=== PATIENT | female | born 1930 | race Caucasian/White ===

== ENCOUNTER 2017-09-30 10:39 | Inpatient (IN) | payer OTHER ==
[2017-09-30] MEDS ORDERED: ONDANSETRON 4 MG INJ IV (14:00)
[2017-09-30] MEDS ORDERED: VANCOMYCIN IV PER PHARMACY XX (14:00)
[2017-09-30 15:56] LABS: BLOOD UREA NITROGEN 19 mg/dl (7-20)
[2017-09-30 15:56] LABS: CREATININE 0.86 mg/dl (0.44-1.00)
[2017-09-30 15:57] LABS: ALANINE AMINOTRANSFERASE 28 IU/L (13-69); ALBUMIN 3.7 g/dl (3.3-4.9); ALKALINE PHOSPHATASE 86 IU/L (42-121); ASPARTATE AMINO TRANSFERASE 25 IU/L (15-46); BILIRUBIN,INDIRECT 0.1 mg/dl (0-1.1); BILIRUBIN,TOTAL 0.1 mg/dl (0.2-1.3); CHOLESTEROL 187 mg/dl (100-200); HDL CHOLESTEROL 46 mg/dl (33-92); LDL CHOLESTEROL,CALCULATED 115 mg/dl; MAGNESIUM 1.8 mg/dl (1.7-2.5); PHOSPHORUS 3.5 mg/dl (2.5-4.9); TOTAL PROTEIN 7.1 g/dl (6.1-8.1); TRIGLYCERIDES 130 mg/dl (0-149)
[2017-09-30 15:59] LABS: HEMOGLOBIN A1C 5.6 % (0-5.9)
[2017-09-30] MEDS: VANCOMYCIN 1 GM 250 ML IVPB (16:09)
[2017-09-30 17:02] LABS: ERYTHROCYTE SEDIMENTATION RATE 45 mm/Hr (0-30)
[2017-09-30 17:24] LABS: INR 1.21; PROTIME 15.5 Sec (11.9-14.9); PT RATIO 1.2
[2017-09-30 17:25] LABS: PARTIAL THROMBOPLASTIN TIME 34.6 Sec (25.0-35.0)
[2017-09-30 17:58] LABS: ADD UMIC YES; UR ASCORBIC ACID NEGATIVE (NEGATIVE); UR BACTERIA MODERATE /HPF (NONE SEEN); UR BILIRUBIN (Dip) NEGATIVE (NEGATIVE); UR BLOOD (Dip) 2+ mg/dL (NEGATIVE); UR CLARITY SLIGHTLY CLOUDY (CLEAR); UR COLOR YELLOW (YELLOW); UR GLUCOSE (Dip) NEGATIVE (NEGATIVE); UR KETONES (Dip) NEGATIVE (NEGATIVE); UR LEUKOCYTE ESTERASE (Dip) 3+ Leu/ul (NEGATIVE); UR NITRITE (Dip) POSITIVE (NEGATIVE); UR RBC 15 /HPF (0-5); UR SPECIFIC GRAVITY (Dip) 1.011 (1.003-1.030); UR TOTAL PROTEIN (Dip) NEGATIVE (NEGATIVE); UR UROBILINOGEN (Dip) NEGATIVE (NEGATIVE); UR WBC 107 /HPF (0-5)
[2017-09-30 18:02] LABS: D-DIMER 9221.22 ng/ml (<460)
[2017-09-30] MEDS: ATORVASTATIN 10 MG TAB PO (20:37)
[2017-09-30] MEDS: DOCUSATE SODIUM 100 MG CAP PO (20:37)
[2017-09-30] MEDS: FAMOTIDINE 20 MG TAB PO (20:37)
[2017-09-30] MEDS: APIXABAN 5 MG TABLET PO (20:38)
[2017-10-01] MEDS: hydrALAzine 20 MG INJ IV (02:34)
[2017-10-01] MEDS ORDERED: METOPROLOL 25 MG TAB PO ×2 (09:00→21:00)
[2017-10-01] MEDS: DOCUSATE SODIUM 100 MG CAP PO ×2 (09:49→21:35)
[2017-10-01] MEDS: FAMOTIDINE 20 MG TAB PO (09:49)
[2017-10-01] MEDS: APIXABAN 5 MG TABLET PO ×2 (10:03→21:35)
[2017-10-01] MEDS: METOPROLOL 25 MG TAB PO ×2 (10:05→21:39)
[2017-10-01] MEDS: CEFEPIME 1GM/50 ML (PMX) 50 ML IVPB ×2 (10:05→21:35)
[2017-10-01 12:01] LABS: ADD MAN DIFF? NO
[2017-10-01 12:19] LABS: BASOPHIL # 0.1 10^3/ul (0.0-0.1); BASOPHILS % 0.7 % (0.0-2.0); EOSINOPHILS # 0.1 10^3/ul (0.0-0.5); EOSINOPHILS % 0.6 % (0.0-7.0); HEMATOCRIT 39.3 % (37.0-47.0); HEMOGLOBIN 13.1 g/dl (12.0-16.0); LYMPHOCYTES # 1.6 10^3/ul (0.8-2.9); MEAN CORPUSCULAR HEMOGLOBIN 28.9 pg (29.0-33.0); MEAN CORPUSCULAR HGB CONC 33.3 g/dl (32.0-37.0); MEAN CORPUSCULAR VOLUME 86.6 fl (82.0-101.0); MEAN PLATELET VOLUME 9.5 fl (7.4-10.4); MONOCYTE # 1.5 10^3/ul (0.3-0.9); MONOCYTES % 11.4 % (0.0-11.0); NEUTROPHIL # 9.7 10^3/ul (1.6-7.5); NEUTROPHILS % 74.6 % (39.0-77.0); PLATELET COUNT 362 10^3/UL (140-415); RED BLOOD COUNT 4.54 10^6/ul (4.20-5.40)
[2017-10-01 12:39] LABS: ANION GAP 16 (8-16); BLOOD UREA NITROGEN 17 mg/dl (7-20); CALCIUM 9.3 mg/dl (8.4-10.2); CARBON DIOXIDE 26 mmol/L (21-31); CHLORIDE 97 mmol/L (97-110); CREATININE 0.67 mg/dl (0.44-1.00); GLUCOSE 118 mg/dl (70-220); POTASSIUM 3.9 mmol/L (3.5-5.1); SODIUM 135 mmol/L (135-144)
[2017-10-01 12:41] LABS: URIC ACID 3.7 mg/dl (3.1-7.9)
[2017-10-01] MEDS: VANCOMYCIN 1 GM 250 ML IVPB (15:50)
[2017-10-01] MEDS ORDERED: WARFARIN 2.5 MG TAB PO (17:00)
[2017-10-01] MEDS: ATORVASTATIN 10 MG TAB PO (21:35)
[2017-10-02] MEDS: CEFEPIME 1GM/50 ML (PMX) 50 ML IVPB ×2 (08:33→20:28)
[2017-10-02] MEDS: APIXABAN 5 MG TABLET PO ×2 (08:34→20:28)
[2017-10-02] MEDS: DOCUSATE SODIUM 100 MG CAP PO ×2 (08:34→20:28)
[2017-10-02] MEDS: FAMOTIDINE 20 MG TAB PO (08:35)
[2017-10-02] MEDS: METOPROLOL 25 MG TAB PO ×2 (08:35→20:33)
[2017-10-02 10:23] LABS: ADD MAN DIFF? NO
[2017-10-02 10:25] LABS: BASOPHIL # 0.1 10^3/ul (0.0-0.1); BASOPHILS % 0.8 % (0.0-2.0); EOSINOPHILS # 0.2 10^3/ul (0.0-0.5); HEMOGLOBIN 12.6 g/dl (12.0-16.0); LYMPHOCYTES # 1.8 10^3/ul (0.8-2.9); LYMPHOCYTES % 17.4 % (15.0-51.0); MEAN CORPUSCULAR HEMOGLOBIN 29.2 pg (29.0-33.0); MEAN CORPUSCULAR HGB CONC 33.2 g/dl (32.0-37.0); MEAN PLATELET VOLUME 9.4 fl (7.4-10.4); MONOCYTES % 9.7 % (0.0-11.0); NEUTROPHILS % 69.5 % (39.0-77.0); PLATELET COUNT 351 10^3/UL (140-415); RED BLOOD COUNT 4.32 10^6/ul (4.20-5.40)
[2017-10-02 10:25] LABS: WHITE BLOOD COUNT 10.1 10^3/ul (4.8-10.8)
[2017-10-02 10:47] LABS: ANION GAP 15 (8-16); BLOOD UREA NITROGEN 19 mg/dl (7-20); CALCIUM 8.9 mg/dl (8.4-10.2); CARBON DIOXIDE 25 mmol/L (21-31); CHLORIDE 100 mmol/L (97-110); GLUCOSE 132 mg/dl (70-220); MAGNESIUM 1.8 mg/dl (1.7-2.5); PHOSPHORUS 2.6 mg/dl (2.5-4.9); POTASSIUM 3.6 mmol/L (3.5-5.1); SODIUM 136 mmol/L (135-144)
[2017-10-02 16:12] LABS: VANCOMYCIN,TROUGH 5.5 ug/ml (10.0-20.0)
[2017-10-02] MEDS: VANCOMYCIN 1 GM 250 ML IVPB (16:16)
[2017-10-02] MEDS: ATORVASTATIN 10 MG TAB PO (20:28)
[2017-10-02] MEDS: traMADol-APAP 37.5-325 1 TAB PO (21:10)
[2017-10-03] MEDS: VANCOMYCIN 1 GM 250 ML IVPB (05:33)
[2017-10-03 05:57] LABS: ADD MAN DIFF? NO; BASOPHIL # 0.1 10^3/ul (0.0-0.1); BASOPHILS % 0.9 % (0.0-2.0); EOSINOPHILS # 0.3 10^3/ul (0.0-0.5); EOSINOPHILS % 3.3 % (0.0-7.0); HEMATOCRIT 35.6 % (37.0-47.0); LYMPHOCYTES # 2.4 10^3/ul (0.8-2.9); LYMPHOCYTES % 27.6 % (15.0-51.0); MEAN CORPUSCULAR HEMOGLOBIN 29.1 pg (29.0-33.0); MEAN CORPUSCULAR HGB CONC 33.7 g/dl (32.0-37.0); MEAN CORPUSCULAR VOLUME 86.2 fl (82.0-101.0); MEAN PLATELET VOLUME 9.4 fl (7.4-10.4); MONOCYTES % 11.8 % (0.0-11.0); NEUTROPHIL # 4.9 10^3/ul (1.6-7.5); NEUTROPHILS % 55.8 % (39.0-77.0); PLATELET COUNT 363 10^3/UL (140-415); RED BLOOD COUNT 4.13 10^6/ul (4.20-5.40); RED CELL DISTRIBUTION WIDTH 13.2 % (11.5-14.5)
[2017-10-03 05:57] LABS: WHITE BLOOD COUNT 8.8 10^3/ul (4.8-10.8)
[2017-10-03 06:53] LABS: BLOOD UREA NITROGEN 19 mg/dl (7-20); CALCIUM 8.7 mg/dl (8.4-10.2); CARBON DIOXIDE 27 mmol/L (21-31); CREATININE 0.73 mg/dl (0.44-1.00); GLUCOSE 90 mg/dl (70-220); PHOSPHORUS 3.1 mg/dl (2.5-4.9); POTASSIUM 3.8 mmol/L (3.5-5.1); SODIUM 138 mmol/L (135-144)
[2017-10-03 07:15] LABS: ANION GAP 12 (8-16)
[2017-10-03 07:16] LABS: CHLORIDE 103 mmol/L (97-110)
[2017-10-03] MEDS: FAMOTIDINE 20 MG TAB PO (08:51)
[2017-10-03] MEDS: DOCUSATE SODIUM 100 MG CAP PO ×2 (08:51→20:19)
[2017-10-03] MEDS: CEFEPIME 1GM/50 ML (PMX) 50 ML IVPB ×2 (08:51→20:19)
[2017-10-03] MEDS: METOPROLOL 25 MG TAB PO ×2 (08:52→20:20)
[2017-10-03] MEDS: APIXABAN 5 MG TABLET PO ×2 (08:52→20:20)
[2017-10-03] MEDS: POLYETHYLENE GLYCOL 17 GM PACKET PO (12:09)
[2017-10-03] MEDS ORDERED: NA PHOSPHATE/BIPHOS 133 ML ENEMA PR (14:30)
[2017-10-03] MEDS: BISACODYL 10 MG SUPP PR (14:48)
[2017-10-03] MEDS: ACETAMINOPHEN/CODEINE #3 TAB PO (17:11)
[2017-10-03] MEDS: ATORVASTATIN 10 MG TAB PO (20:20)
[2017-10-03] MEDS: traMADol-APAP 37.5-325 1 TAB PO (20:27)
[2017-10-03 23:16] LABS: OCCULT BLOOD STOOL POSITIVE (NEGATIVE)
[2017-10-04 06:30] LABS: ADD MAN DIFF? NO
[2017-10-04 06:40] LABS: BASOPHIL # 0.1 10^3/ul (0.0-0.1); BASOPHILS % 0.6 % (0.0-2.0); EOSINOPHILS # 0.2 10^3/ul (0.0-0.5); EOSINOPHILS % 1.3 % (0.0-7.0); HEMATOCRIT 37.6 % (37.0-47.0); HEMOGLOBIN 12.5 g/dl (12.0-16.0); LYMPHOCYTES % 16.2 % (15.0-51.0); MEAN CORPUSCULAR HEMOGLOBIN 28.9 pg (29.0-33.0); MEAN CORPUSCULAR HGB CONC 33.2 g/dl (32.0-37.0); MEAN PLATELET VOLUME 10.2 fl (7.4-10.4); MONOCYTES % 7.8 % (0.0-11.0); NEUTROPHIL # 9.2 10^3/ul (1.6-7.5); NEUTROPHILS % 73.5 % (39.0-77.0); PLATELET COUNT 347 10^3/UL (140-415); RED BLOOD COUNT 4.32 10^6/ul (4.20-5.40); RED CELL DISTRIBUTION WIDTH 12.9 % (11.5-14.5)
[2017-10-04 06:40] LABS: WHITE BLOOD COUNT 12.4 10^3/ul (4.8-10.8)
[2017-10-04] MEDS: POLYETHYLENE GLYCOL 17 GM PACKET PO ×2 (09:00)
[2017-10-04] MEDS: DOCUSATE SODIUM 100 MG CAP PO ×2 (09:00→20:48)
[2017-10-04] MEDS: CEFEPIME 1GM/50 ML (PMX) 50 ML IVPB (09:00)
[2017-10-04] MEDS: FAMOTIDINE 20 MG TAB PO (09:00)
[2017-10-04] MEDS: METOPROLOL 25 MG TAB PO ×2 (09:01→20:48)
[2017-10-04] MEDS: APIXABAN 5 MG TABLET PO (09:01)
[2017-10-04] MEDS: PANTOPRAZOLE 40 MG INJ IV (18:01)
[2017-10-04] MEDS: ATORVASTATIN 10 MG TAB PO (20:43)
[2017-10-05] MEDS: PANTOPRAZOLE 40 MG INJ IV ×2 (06:10→18:00)
[2017-10-05] MEDS: POLYETHYLENE GLYCOL 17 GM PACKET PO (09:00)
[2017-10-05] MEDS: DOCUSATE SODIUM 100 MG CAP PO ×2 (09:11→20:43)
[2017-10-05] MEDS: CEPHALEXIN 500 MG CAP PO ×2 (09:11→20:44)
[2017-10-05] MEDS: METOPROLOL 25 MG TAB PO ×2 (09:12→20:44)
[2017-10-05 09:34] LABS: ADD MAN DIFF? NO
[2017-10-05 09:35] LABS: BASOPHIL # 0.1 10^3/ul (0.0-0.1); BASOPHILS % 0.8 % (0.0-2.0); EOSINOPHILS # 0.2 10^3/ul (0.0-0.5); EOSINOPHILS % 2.8 % (0.0-7.0); HEMATOCRIT 35.6 % (37.0-47.0); HEMOGLOBIN 11.6 g/dl (12.0-16.0); LYMPHOCYTES # 1.6 10^3/ul (0.8-2.9); LYMPHOCYTES % 20.7 % (15.0-51.0); MEAN CORPUSCULAR HEMOGLOBIN 28.8 pg (29.0-33.0); MEAN CORPUSCULAR HGB CONC 32.6 g/dl (32.0-37.0); MEAN CORPUSCULAR VOLUME 88.3 fl (82.0-101.0); MEAN PLATELET VOLUME 9.2 fl (7.4-10.4); MONOCYTE # 0.6 10^3/ul (0.3-0.9); MONOCYTES % 7.1 % (0.0-11.0); NEUTROPHIL # 5.4 10^3/ul (1.6-7.5); NEUTROPHILS % 68.2 % (39.0-77.0); PLATELET COUNT 401 10^3/UL (140-415); RED BLOOD COUNT 4.03 10^6/ul (4.20-5.40)
[2017-10-05 09:35] LABS: WHITE BLOOD COUNT 7.8 10^3/ul (4.8-10.8)
[2017-10-05] MEDS: traMADol-APAP 37.5-325 1 TAB PO (10:31)
[2017-10-05] MEDS ORDERED: LIDOCAINE 2% (SDV) 5 ML INJ (17:55)
[2017-10-05] MEDS ORDERED: FENTAnyl 50 MCG/ML VIAL (17:55)
[2017-10-05] MEDS ORDERED: PROPOFOL 20 ML (17:55)
[2017-10-05] MEDS: ATORVASTATIN 10 MG TAB PO (20:43)
[2017-10-06 05:38] LABS: ADD MAN DIFF? NO
[2017-10-06] MEDS: PANTOPRAZOLE 40 MG INJ IV ×2 (06:14→18:09)
[2017-10-06 06:31] LABS: ALBUMIN 3.2 g/dl (3.3-4.9); ANION GAP 11 (8-16); BLOOD UREA NITROGEN 18 mg/dl (7-20); CALCIUM 8.6 mg/dl (8.4-10.2); CARBON DIOXIDE 28 mmol/L (21-31); CHLORIDE 103 mmol/L (97-110); CREATININE 0.69 mg/dl (0.44-1.00); GLUCOSE 87 mg/dl (70-220); PHOSPHORUS 3.4 mg/dl (2.5-4.9); POTASSIUM 4.2 mmol/L (3.5-5.1); SODIUM 138 mmol/L (135-144)
[2017-10-06 08:47] LABS: BASOPHIL # 0.1 10^3/ul (0.0-0.1); BASOPHILS % 0.9 % (0.0-2.0); EOSINOPHILS # 0.2 10^3/ul (0.0-0.5); EOSINOPHILS % 2.6 % (0.0-7.0); HEMATOCRIT 33.4 % (37.0-47.0); HEMOGLOBIN 11.1 g/dl (12.0-16.0); LYMPHOCYTES # 2.2 10^3/ul (0.8-2.9); LYMPHOCYTES % 24.6 % (15.0-51.0); MEAN CORPUSCULAR HEMOGLOBIN 28.8 pg (29.0-33.0); MEAN CORPUSCULAR HGB CONC 33.2 g/dl (32.0-37.0); MEAN CORPUSCULAR VOLUME 86.8 fl (82.0-101.0); MEAN PLATELET VOLUME 10.7 fl (7.4-10.4); MONOCYTE # 0.9 10^3/ul (0.3-0.9); MONOCYTES % 9.7 % (0.0-11.0); NEUTROPHIL # 5.4 10^3/ul (1.6-7.5); PLATELET COUNT 284 10^3/UL (140-415); RED BLOOD COUNT 3.85 10^6/ul (4.20-5.40); RED CELL DISTRIBUTION WIDTH 12.8 % (11.5-14.5)
[2017-10-06 08:47] LABS: WHITE BLOOD COUNT 8.7 10^3/ul (4.8-10.8)
[2017-10-06 08:48] LABS: POSITIVE DIFF @See below
[2017-10-06 08:50] LABS: ANISOCYTOSIS 1+ (0-0); BAND NEUTROPHILS #M 0.1 10^3/ul (0.0-0.6); BAND NEUTROPHILS % (M) 2 % (0-4); EOSINOPHILS % (M) 1 % (0-7); LYMPHOCYTES #M 1.4 10^3/ul (0.8-2.9); LYMPHOCYTES % (M) 17 % (15-51); MICROCYTOSIS 1+ (0-0); MONOCYTE #M 0.2 10^3/ul (0.3-0.9); MONOCYTES % (M) 3 % (0-11); PLATELET ESTIMATE NORMAL; PLATELET MORPHOLOGY COMMENT @See below; REACTIVE LYMPHOCYTES% (M) 1 % (0-0); SEG NEUT #M 6.6 10^3/ul (1.7-7.5); SEGMENTED NEUTROPHILS (M) % 76 % (39-77)
[2017-10-06] MEDS: METOPROLOL 25 MG TAB PO ×2 (09:00→21:28)
[2017-10-06] MEDS: POLYETHYLENE GLYCOL 17 GM PACKET PO (09:00)
[2017-10-06] MEDS: DOCUSATE SODIUM 100 MG CAP PO ×2 (09:21→21:28)
[2017-10-06] MEDS: CEPHALEXIN 500 MG CAP PO ×2 (09:26→21:28)
[2017-10-06] MEDS: PRAMOXINE 1% 15 GM RECT FOAM PR (10:47)
[2017-10-06] MEDS: ATORVASTATIN 10 MG TAB PO (21:28)
[2017-10-07] MEDS: PANTOPRAZOLE 40 MG INJ IV ×2 (05:46→17:54)
[2017-10-07 06:08] LABS: ADD MAN DIFF? NO
[2017-10-07 06:15] LABS: BASOPHIL # 0.1 10^3/ul (0.0-0.1); EOSINOPHILS # 0.2 10^3/ul (0.0-0.5); HEMATOCRIT 34.3 % (37.0-47.0); HEMOGLOBIN 11.3 g/dl (12.0-16.0); LYMPHOCYTES # 1.8 10^3/ul (0.8-2.9); LYMPHOCYTES % 25.5 % (15.0-51.0); MEAN CORPUSCULAR HEMOGLOBIN 28.6 pg (29.0-33.0); MEAN CORPUSCULAR HGB CONC 32.9 g/dl (32.0-37.0); MEAN CORPUSCULAR VOLUME 86.8 fl (82.0-101.0); MEAN PLATELET VOLUME 9.4 fl (7.4-10.4); MONOCYTE # 0.7 10^3/ul (0.3-0.9); MONOCYTES % 9.6 % (0.0-11.0); NEUTROPHIL # 4.2 10^3/ul (1.6-7.5); NEUTROPHILS % 60.2 % (39.0-77.0); PLATELET COUNT 412 10^3/UL (140-415); RED BLOOD COUNT 3.95 10^6/ul (4.20-5.40); RED CELL DISTRIBUTION WIDTH 12.6 % (11.5-14.5)
[2017-10-07 06:55] LABS: ALBUMIN 3.3 g/dl (3.3-4.9); ANION GAP 13 (8-16); BLOOD UREA NITROGEN 17 mg/dl (7-20); CALCIUM 8.6 mg/dl (8.4-10.2); CARBON DIOXIDE 27 mmol/L (21-31); CHLORIDE 103 mmol/L (97-110); CREATININE 0.65 mg/dl (0.44-1.00); GLUCOSE 93 mg/dl (70-220); MAGNESIUM 1.8 mg/dl (1.7-2.5); PHOSPHORUS 3.3 mg/dl (2.5-4.9); POTASSIUM 3.8 mmol/L (3.5-5.1); SODIUM 139 mmol/L (135-144)
[2017-10-07] MEDS: DOCUSATE SODIUM 100 MG CAP PO ×2 (08:49→20:49)
[2017-10-07] MEDS: CEPHALEXIN 500 MG CAP PO ×2 (08:49→20:49)
[2017-10-07] MEDS: METOPROLOL 25 MG TAB PO ×2 (08:50→20:50)
[2017-10-07] MEDS: POLYETHYLENE GLYCOL 17 GM PACKET PO ×2 (08:50→08:54)
[2017-10-07] MEDS: SOD CHLORIDE 0.9% 100 ML (12:12)
[2017-10-07] MEDS: IOHEXOL 300MG/ML 150 ML BTL (12:12)
[2017-10-07] MEDS: ATORVASTATIN 10 MG TAB PO (20:49)
[2017-10-07] MEDS: APIXABAN 5 MG TABLET PO (20:49)
[2017-10-07 23:53] LABS: CARDIOLIPIN AB - IGA <11 APL; CARDIOLIPIN AB - IGG <14 GPL; CARDIOLIPIN AB - IGM <12 MPL
[2017-10-08 05:58] LABS: ADD MAN DIFF? NO
[2017-10-08 05:59] LABS: BASOPHIL # 0.1 10^3/ul (0.0-0.1); BASOPHILS % 1.1 % (0.0-2.0); EOSINOPHILS # 0.2 10^3/ul (0.0-0.5); HEMATOCRIT 35.3 % (37.0-47.0); HEMOGLOBIN 11.7 g/dl (12.0-16.0); LYMPHOCYTES % 29.1 % (15.0-51.0); MEAN CORPUSCULAR HGB CONC 33.1 g/dl (32.0-37.0); MEAN CORPUSCULAR VOLUME 87.6 fl (82.0-101.0); MEAN PLATELET VOLUME 9.4 fl (7.4-10.4); MONOCYTE # 0.7 10^3/ul (0.3-0.9); MONOCYTES % 9.7 % (0.0-11.0); NEUTROPHILS % 56.7 % (39.0-77.0); PLATELET COUNT 382 10^3/UL (140-415); RED BLOOD COUNT 4.03 10^6/ul (4.20-5.40)
[2017-10-08] MEDS: PANTOPRAZOLE 40 MG INJ IV ×2 (06:04→17:29)
[2017-10-08 06:37] LABS: ALBUMIN 3.4 g/dl (3.3-4.9); ANION GAP 14 (8-16); BLOOD UREA NITROGEN 17 mg/dl (7-20); CALCIUM 9.4 mg/dl (8.4-10.2); CARBON DIOXIDE 24 mmol/L (21-31); CHLORIDE 104 mmol/L (97-110); CREATININE 0.68 mg/dl (0.44-1.00); GLUCOSE 90 mg/dl (70-220); MAGNESIUM 1.8 mg/dl (1.7-2.5); PHOSPHORUS 3.6 mg/dl (2.5-4.9); SODIUM 138 mmol/L (135-144)
[2017-10-08] MEDS: PRAMOXINE 1% 15 GM RECT FOAM PR (07:00)
[2017-10-08] MEDS: DOCUSATE SODIUM 100 MG CAP PO ×2 (08:19→21:13)
[2017-10-08] MEDS: METOPROLOL 25 MG TAB PO ×2 (08:20→21:14)
[2017-10-08] MEDS: APIXABAN 5 MG TABLET PO ×2 (08:20→21:13)
[2017-10-08] MEDS: CEPHALEXIN 500 MG CAP PO ×2 (08:20→21:13)
[2017-10-08] MEDS: POLYETHYLENE GLYCOL 17 GM PACKET PO (08:24)
[2017-10-08] MEDS ORDERED: SENNA/DOCUSATE NA (8.6MG/50MG) TAB PO (09:00)
[2017-10-08 16:41] LABS: OCCULT BLOOD STOOL NEGATIVE (NEGATIVE)
[2017-10-08] MEDS: ATORVASTATIN 10 MG TAB PO (21:13)
[2017-10-09] MEDS: PANTOPRAZOLE 40 MG INJ IV ×2 (05:25→18:37)
[2017-10-09 06:14] LABS: ADD MAN DIFF? NO
[2017-10-09 06:19] LABS: BASOPHIL # 0.1 10^3/ul (0.0-0.1); BASOPHILS % 1.1 % (0.0-2.0); EOSINOPHILS # 0.2 10^3/ul (0.0-0.5); EOSINOPHILS % 3.5 % (0.0-7.0); HEMATOCRIT 37.2 % (37.0-47.0); HEMOGLOBIN 12.2 g/dl (12.0-16.0); LYMPHOCYTES # 1.9 10^3/ul (0.8-2.9); LYMPHOCYTES % 29.6 % (15.0-51.0); MEAN CORPUSCULAR HEMOGLOBIN 28.6 pg (29.0-33.0); MEAN CORPUSCULAR HGB CONC 32.8 g/dl (32.0-37.0); MEAN CORPUSCULAR VOLUME 87.1 fl (82.0-101.0); MEAN PLATELET VOLUME 10.8 fl (7.4-10.4); MONOCYTE # 0.7 10^3/ul (0.3-0.9); MONOCYTES % 10.8 % (0.0-11.0); NEUTROPHIL # 3.5 10^3/ul (1.6-7.5); NEUTROPHILS % 54.7 % (39.0-77.0); PLATELET COUNT 303 10^3/UL (140-415); RED BLOOD COUNT 4.27 10^6/ul (4.20-5.40); RED CELL DISTRIBUTION WIDTH 12.9 % (11.5-14.5)
[2017-10-09 06:19] LABS: WHITE BLOOD COUNT 6.3 10^3/ul (4.8-10.8)
[2017-10-09 06:38] LABS: ALBUMIN 3.5 g/dl (3.3-4.9); ANION GAP 14 (8-16); BLOOD UREA NITROGEN 16 mg/dl (7-20); CARBON DIOXIDE 26 mmol/L (21-31); CHLORIDE 103 mmol/L (97-110); CREATININE 0.63 mg/dl (0.44-1.00); GLUCOSE 86 mg/dl (70-220); MAGNESIUM 1.8 mg/dl (1.7-2.5); PHOSPHORUS 3.5 mg/dl (2.5-4.9); POTASSIUM 4.8 mmol/L (3.5-5.1); SODIUM 138 mmol/L (135-144)
[2017-10-09] MEDS: APIXABAN 5 MG TABLET PO ×2 (09:41→20:56)
[2017-10-09] MEDS: DOCUSATE SODIUM 100 MG CAP PO ×2 (09:41→20:56)
[2017-10-09] MEDS: METOPROLOL 25 MG TAB PO ×2 (09:41→20:57)
[2017-10-09] MEDS: ATORVASTATIN 10 MG TAB PO (20:56)
[2017-10-09] MEDS: ACETAMINOPHEN/CODEINE #3 TAB PO (21:24)
[2017-10-10] MEDS: PANTOPRAZOLE 40 MG INJ IV ×2 (05:35→17:42)
[2017-10-10] MEDS: DOCUSATE SODIUM 100 MG CAP PO ×2 (09:03→22:16)
[2017-10-10] MEDS: APIXABAN 5 MG TABLET PO ×2 (09:03→22:15)
[2017-10-10] MEDS: METOPROLOL 25 MG TAB PO ×2 (09:03→22:15)
[2017-10-10] MEDS: ATORVASTATIN 10 MG TAB PO (22:15)
[2017-10-10] MEDS: GABAPENTIN 100 MG CAP PO (22:16)
[2017-10-11 06:21] LABS: ADD MAN DIFF? NO
[2017-10-11 06:29] LABS: WHITE BLOOD COUNT 6.6 10^3/ul (4.8-10.8)
[2017-10-11 06:29] LABS: BASOPHIL # 0.1 10^3/ul (0.0-0.1); BASOPHILS % 1.1 % (0.0-2.0); EOSINOPHILS # 0.2 10^3/ul (0.0-0.5); EOSINOPHILS % 2.7 % (0.0-7.0); HEMOGLOBIN 12.5 g/dl (12.0-16.0); LYMPHOCYTES # 2.1 10^3/ul (0.8-2.9); LYMPHOCYTES % 32.1 % (15.0-51.0); MEAN CORPUSCULAR HGB CONC 32.9 g/dl (32.0-37.0); MEAN CORPUSCULAR VOLUME 88.2 fl (82.0-101.0); MEAN PLATELET VOLUME 9.7 fl (7.4-10.4); MONOCYTE # 0.7 10^3/ul (0.3-0.9); MONOCYTES % 10.5 % (0.0-11.0); NEUTROPHIL # 3.5 10^3/ul (1.6-7.5); NEUTROPHILS % 53.1 % (39.0-77.0); PLATELET COUNT 361 10^3/UL (140-415); RED BLOOD COUNT 4.31 10^6/ul (4.20-5.40); RED CELL DISTRIBUTION WIDTH 13.1 % (11.5-14.5)
[2017-10-11] MEDS: PANTOPRAZOLE 40 MG INJ IV ×2 (06:29→18:25)
[2017-10-11 06:58] LABS: ANION GAP 12 (8-16); BLOOD UREA NITROGEN 25 mg/dl (7-20); CALCIUM 9.4 mg/dl (8.4-10.2); CARBON DIOXIDE 30 mmol/L (21-31); CHLORIDE 101 mmol/L (97-110); CREATININE 0.81 mg/dl (0.44-1.00); GLUCOSE 89 mg/dl (70-220); MAGNESIUM 1.9 mg/dl (1.7-2.5); SODIUM 139 mmol/L (135-144)
[2017-10-11] MEDS: APIXABAN 5 MG TABLET PO ×2 (09:09→20:23)
[2017-10-11] MEDS: GABAPENTIN 100 MG CAP PO ×3 (09:09→20:24)
[2017-10-11] MEDS: DOCUSATE SODIUM 100 MG CAP PO ×2 (09:09→20:23)
[2017-10-11] MEDS: METOPROLOL 25 MG TAB PO ×2 (09:10→20:23)
[2017-10-11 18:23] LABS: OCCULT BLOOD STOOL NEGATIVE (NEGATIVE)
[2017-10-11] MEDS: ATORVASTATIN 10 MG TAB PO (20:23)
[2017-10-12 06:14] LABS: ADD MAN DIFF? NO
[2017-10-12] MEDS: PANTOPRAZOLE 40 MG INJ IV (06:17)
[2017-10-12 06:23] LABS: BASOPHIL # 0.1 10^3/ul (0.0-0.1); BASOPHILS % 0.8 % (0.0-2.0); EOSINOPHILS # 0.2 10^3/ul (0.0-0.5); EOSINOPHILS % 2.5 % (0.0-7.0); HEMATOCRIT 38.5 % (37.0-47.0); HEMOGLOBIN 12.5 g/dl (12.0-16.0); LYMPHOCYTES # 2.2 10^3/ul (0.8-2.9); LYMPHOCYTES % 30.3 % (15.0-51.0); MEAN CORPUSCULAR HEMOGLOBIN 28.7 pg (29.0-33.0); MEAN CORPUSCULAR HGB CONC 32.5 g/dl (32.0-37.0); MEAN CORPUSCULAR VOLUME 88.3 fl (82.0-101.0); MEAN PLATELET VOLUME 9.8 fl (7.4-10.4); MONOCYTE # 0.8 10^3/ul (0.3-0.9); NEUTROPHIL # 3.9 10^3/ul (1.6-7.5); PLATELET COUNT 341 10^3/UL (140-415); RED BLOOD COUNT 4.36 10^6/ul (4.20-5.40); RED CELL DISTRIBUTION WIDTH 12.8 % (11.5-14.5)
[2017-10-12 06:23] LABS: WHITE BLOOD COUNT 7.2 10^3/ul (4.8-10.8)
[2017-10-12 06:57] LABS: ANION GAP 13 (8-16); BLOOD UREA NITROGEN 20 mg/dl (7-20); CALCIUM 9.6 mg/dl (8.4-10.2); CARBON DIOXIDE 28 mmol/L (21-31); CHLORIDE 103 mmol/L (97-110); CREATININE 0.78 mg/dl (0.44-1.00); GLUCOSE 90 mg/dl (70-220); MAGNESIUM 1.9 mg/dl (1.7-2.5); PHOSPHORUS 3.5 mg/dl (2.5-4.9); POTASSIUM 4.1 mmol/L (3.5-5.1); SODIUM 140 mmol/L (135-144)
[2017-10-12] MEDS: DOCUSATE SODIUM 100 MG CAP PO ×2 (08:24→20:19)
[2017-10-12] MEDS: APIXABAN 5 MG TABLET PO ×2 (08:25→20:19)
[2017-10-12] MEDS: GABAPENTIN 100 MG CAP PO ×3 (08:25→20:19)
[2017-10-12] MEDS: METOPROLOL 25 MG TAB PO ×2 (08:26→20:19)
[2017-10-12 13:24] LABS: AMMONIA < 9 umol/l (9-30)
[2017-10-12] MEDS: PANTOPRAZOLE (EC) 40 MG TAB PO (17:24)
[2017-10-12] MEDS: ATORVASTATIN 10 MG TAB PO (20:18)
[2017-10-13] MEDS: PANTOPRAZOLE (EC) 40 MG TAB PO ×2 (05:45→18:12)
[2017-10-13 06:26] LABS: ADD MAN DIFF? NO
[2017-10-13 06:44] LABS: WHITE BLOOD COUNT 7.2 10^3/ul (4.8-10.8)
[2017-10-13 06:44] LABS: BASOPHIL # 0.1 10^3/ul (0.0-0.1); EOSINOPHILS # 0.2 10^3/ul (0.0-0.5); EOSINOPHILS % 3.1 % (0.0-7.0); HEMATOCRIT 36.6 % (37.0-47.0); HEMOGLOBIN 12.3 g/dl (12.0-16.0); LYMPHOCYTES # 2.6 10^3/ul (0.8-2.9); LYMPHOCYTES % 36.2 % (15.0-51.0); MEAN CORPUSCULAR HEMOGLOBIN 29.4 pg (29.0-33.0); MEAN CORPUSCULAR HGB CONC 33.6 g/dl (32.0-37.0); MEAN CORPUSCULAR VOLUME 87.4 fl (82.0-101.0); MEAN PLATELET VOLUME 9.6 fl (7.4-10.4); MONOCYTE # 0.9 10^3/ul (0.3-0.9); MONOCYTES % 12.1 % (0.0-11.0); NEUTROPHIL # 3.4 10^3/ul (1.6-7.5); NEUTROPHILS % 47.3 % (39.0-77.0); PLATELET COUNT 305 10^3/UL (140-415); RED BLOOD COUNT 4.19 10^6/ul (4.20-5.40); RED CELL DISTRIBUTION WIDTH 12.9 % (11.5-14.5)
[2017-10-13 07:05] LABS: ANION GAP 15 (8-16); BLOOD UREA NITROGEN 24 mg/dl (7-20); CALCIUM 8.9 mg/dl (8.4-10.2); CARBON DIOXIDE 27 mmol/L (21-31); CHLORIDE 103 mmol/L (97-110); CREATININE 0.81 mg/dl (0.44-1.00); GLUCOSE 88 mg/dl (70-220); MAGNESIUM 1.9 mg/dl (1.7-2.5); PHOSPHORUS 3.5 mg/dl (2.5-4.9); POTASSIUM 4.4 mmol/L (3.5-5.1); SODIUM 141 mmol/L (135-144)
[2017-10-13] MEDS: APIXABAN 5 MG TABLET PO ×2 (09:25→20:23)
[2017-10-13] MEDS: GABAPENTIN 100 MG CAP PO ×3 (09:25→20:24)
[2017-10-13] MEDS: DOCUSATE SODIUM 100 MG CAP PO ×2 (09:25→20:23)
[2017-10-13] MEDS: METOPROLOL 25 MG TAB PO ×2 (09:27→20:25)
[2017-10-13] MEDS: ATORVASTATIN 10 MG TAB PO (20:24)
[2017-10-14] MEDS: PANTOPRAZOLE (EC) 40 MG TAB PO ×2 (06:32→17:36)
[2017-10-14] MEDS: METOPROLOL 25 MG TAB PO ×2 (08:29→20:11)
[2017-10-14] MEDS: DOCUSATE SODIUM 100 MG CAP PO ×2 (08:29→20:12)
[2017-10-14] MEDS: APIXABAN 5 MG TABLET PO ×2 (08:29→20:12)
[2017-10-14] MEDS: GABAPENTIN 100 MG CAP PO ×3 (09:33→20:12)
[2017-10-14] MEDS: ATORVASTATIN 10 MG TAB PO (20:12)
[2017-10-15] MEDS: PANTOPRAZOLE (EC) 40 MG TAB PO ×2 (05:37→17:50)
[2017-10-15] MEDS: DOCUSATE SODIUM 100 MG CAP PO ×2 (08:58→20:16)
[2017-10-15] MEDS: APIXABAN 5 MG TABLET PO ×2 (08:58→20:16)
[2017-10-15] MEDS: METOPROLOL 25 MG TAB PO ×2 (08:58→20:16)
[2017-10-15] MEDS: GABAPENTIN 100 MG CAP PO ×3 (08:58→20:16)
[2017-10-15] MEDS: ATORVASTATIN 10 MG TAB PO (20:16)
[2017-10-16] MEDS: PANTOPRAZOLE (EC) 40 MG TAB PO ×2 (05:22→17:52)
[2017-10-16] MEDS: DOCUSATE SODIUM 100 MG CAP PO ×2 (09:37→20:46)
[2017-10-16] MEDS: APIXABAN 5 MG TABLET PO ×2 (09:38→20:46)
[2017-10-16] MEDS: METOPROLOL 25 MG TAB PO ×2 (09:38→20:47)
[2017-10-16] MEDS: GABAPENTIN 100 MG CAP PO ×3 (09:38→20:46)
[2017-10-16] MEDS: ATORVASTATIN 10 MG TAB PO (20:46)
[2017-10-17] MEDS: PANTOPRAZOLE (EC) 40 MG TAB PO ×2 (06:13→18:05)
[2017-10-17 06:19] LABS: ADD MAN DIFF? NO
[2017-10-17 06:43] LABS: WHITE BLOOD COUNT 6.9 10^3/ul (4.8-10.8)
[2017-10-17 06:43] LABS: BASOPHIL # 0.1 10^3/ul (0.0-0.1); BASOPHILS % 0.9 % (0.0-2.0); EOSINOPHILS # 0.2 10^3/ul (0.0-0.5); EOSINOPHILS % 2.9 % (0.0-7.0); LYMPHOCYTES # 2.2 10^3/ul (0.8-2.9); MEAN CORPUSCULAR HEMOGLOBIN 29.3 pg (29.0-33.0); MEAN CORPUSCULAR HGB CONC 33.3 g/dl (32.0-37.0); MEAN PLATELET VOLUME 9.9 fl (7.4-10.4); MONOCYTE # 0.8 10^3/ul (0.3-0.9); NEUTROPHIL # 3.7 10^3/ul (1.6-7.5); NEUTROPHILS % 52.8 % (39.0-77.0); PLATELET COUNT 306 10^3/UL (140-415); RED BLOOD COUNT 4.09 10^6/ul (4.20-5.40); RED CELL DISTRIBUTION WIDTH 13.4 % (11.5-14.5)
[2017-10-17 06:57] LABS: ANION GAP 12 (8-16); BLOOD UREA NITROGEN 24 mg/dl (7-20); CALCIUM 9.6 mg/dl (8.4-10.2); CARBON DIOXIDE 32 mmol/L (21-31); CHLORIDE 101 mmol/L (97-110); CREATININE 0.81 mg/dl (0.44-1.00); GLUCOSE 94 mg/dl (70-220); MAGNESIUM 1.9 mg/dl (1.7-2.5); POTASSIUM 4.3 mmol/L (3.5-5.1); SODIUM 141 mmol/L (135-144)
[2017-10-17] MEDS: GABAPENTIN 100 MG CAP PO ×3 (08:51→20:30)
[2017-10-17] MEDS: APIXABAN 5 MG TABLET PO ×2 (08:51→20:30)
[2017-10-17] MEDS: METOPROLOL 25 MG TAB PO ×2 (08:51→20:30)
[2017-10-17] MEDS: DOCUSATE SODIUM 100 MG CAP PO ×2 (08:51→20:29)
[2017-10-17] MEDS: ATORVASTATIN 10 MG TAB PO (20:30)
[2017-10-18] MEDS: PANTOPRAZOLE (EC) 40 MG TAB PO (05:45)
[2017-10-18] MEDS: APIXABAN 5 MG TABLET PO (09:54)
[2017-10-18] MEDS: DOCUSATE SODIUM 100 MG CAP PO (09:54)
[2017-10-18] MEDS: GABAPENTIN 100 MG CAP PO ×2 (09:54→13:11)
[2017-10-18] MEDS: METOPROLOL 25 MG TAB PO (09:55)
[2017-10-18] MEDS: traMADol-APAP 37.5-325 1 TAB PO ×2 (13:12→15:23)
== END 2017-10-18 16:10 | DRG 299 ==
LOC: TEL 10-08 19:48 → MS2 10:39
PROC: 0DJ08ZZ Inspection of Upper Intestinal Tract, Via Natural or Artificial Opening Endoscopic (ICD-10-PCS; principal; 2017-10-05 17:00)
DX: I82.413 Acute embolism and thrombosis of femoral vein, bilateral (principal); K29.71 Gastritis, unspecified, with bleeding; I82.433 Acute embolism and thrombosis of popliteal vein, bilateral; G20 Parkinson's disease; L03.115 Cellulitis of right lower limb; N39.0 Urinary tract infection, site not specified; K92.1 Melena; G30.9 Alzheimer's disease, unspecified; F02.80 Dementia in other diseases classified elsewhere, unspecified severity, without behavioral disturbance, psychotic disturbance, mood disturbance, and anxiety; I10 Essential (primary) hypertension; E78.5 Hyperlipidemia, unspecified; E66.9 Obesity, unspecified; Z68.32 Body mass index [BMI] 32.0-32.9, adult; K64.9 Unspecified hemorrhoids; K20.9 Esophagitis, unspecified; Z79.02 Long term (current) use of antithrombotics/antiplatelets; M25.551 Pain in right hip; Z96.641 Presence of right artificial hip joint; Z86.718 Personal history of other venous thrombosis and embolism
CPT/HCPCS: 70470; 71045; 72192; 73700; 80048; 80061; 80069; 80076; 80202; 81001; 81240; 82140; 82270; 82565; 83036; 83735; 83890; 84100; 84443; 84520; 84560; 85025; 85300; 85302; 85305; 85378; 85610; 85613; 85651; 85730; 86147; 92526; 92610; 93970; 97110; 97116; 97163; 97530